=== PATIENT | female | born 1990 | race Caucasian/White ===

== ENCOUNTER 2023-09-11 18:33 | Inpatient (IN) | payer OTHER, SELFPAY ==
[2023-09-11 11:08] VITALS: BP 137/78
[2023-09-11 11:22] LABS: % Basophils 0.3 % (0-2); % Eosinophils 0.6 % (0-6); % Immature Granulocytes 0.2 % (0-0.5); % Lymphocytes 14.9 % (20.5-51.1); % Monocytes 7.5 % (1.7-9.3); % Neutrophils 76.5 % (42.2-75.2); Absolute Eosinophils 0.1 10^3/uL (0-0.7); Hemoglobin 13.5 g/dL (12.0-16.0); Mean Corp Hgb Conc. 35.5 g/dL (33.0-37.0); Mean Corpuscular Hgb 32.5 pg (27.0-31.0); Mean Corpuscular Volume 91.6 fL (81.0-99.0); Nucleated Red Blood Cells % 0 %; Platelet Count 199 10^3/uL (130-400); Red Blood Cell Count 4.15 10^6/uL (4.20-5.40); White Blood Cell Count 13.1 10^3/uL (4.8-10.8)
[2023-09-11 11:38] LABS: HCG, Serum Qualitative Screen Negative
[2023-09-11 11:51] LABS: ALT (SGPT) 13 U/L (0-35); AST (SGOT) 21 U/L (14-36); Albumin 4.5 g/dl (3.5-5.0); Alkaline Phosphatase 61 U/L (38-126); Blood Urea Nitrogen 12 mg/dl (7-17); Calcium 9.2 mg/dl (8.4-10.2); Carbon Dioxide 25 mmol/L (22-30); Chloride 103 mmol/L (98-107); Glucose 93 mg/dl (70-99); Potassium 4.1 mmol/L (3.5-5.1); Sodium 136 mmol/L (135-145); Total Bilirubin 0.9 mg/dl (0.2-1.3); Total Protein 7.2 g/dl (6.3-8.2); eGFR > 60.00
--- NOTE | 2023-09-11 13:04 | ED.GENMED ---
History of Present Illness
<Quiana Lobo PA-C - Last Filed: 09/11/23 17:41>
General
Chief Complaint: Anal/Rectal Problem
Source: patient
Time Seen by Provider: 09/11/23 12:47
History of Present Illness
History of Present Illness:
33yoF with a history of prior perianal abscess, SVT, seasonal allergies, and anxiety presenting for evaluation of rectal pain x 3 days. She reports increasing rectal discomfort and pain with sitting over the past few days. She has a history of a
perianal abscess in March 2022 that required surgery and her current symptoms feel similar. She reports nausea and body aches. Tmax 99.1 on arrival here. She has been taking ibuprofen which provides temporary relief. Last bowel movement was this
morning which was normal.
Phy Exam
<Quiana Lobo PA-C - Last Filed: 09/11/23 17:41>
Physical Exam
Physical Exam:
Abdomen soft, non-distended, non-tender. Small nonthrombosed external hemorrhoids noted. No palpable fluctuance or induration in gluteal region. +Pain during digital rectal exam although no obvious abscess palpated.
General Physical Exam
General Presentation: well appearing and no apparent distress
General age: appears stated age
General Skin: warm and dry
General Habitus: normal
General Mental: alert
General Hydration: appears well hydrated
Course
<Quiana Lobo PA-C - Last Filed: 09/11/23 17:41>
Orders/Labs/Results
Orders:
Orders
09/11/23 11:13
Test Result ONCE
09/11/23 11:16
CMP [Comprehensive Metabolic Panel] Urgent
Complete Blood Count/With Diff Urgent
HCG, Serum Qualitative Screen Urgent
09/11/23 13:06
CT Pelvis With Iv Contrast Urgent
Comment:
Reason For Exam: Rectal pain, hx of perianal abscess
0.9% Sodium Chloride 1000 ml [Nss] 1,000 ml IV BOLUS
Ketorolac [Toradol] 15 mg IV NOW STA
09/11/23 17:08
ColoRectal Surgery Consult Urgent
Consulting Provider: Donis Fisher
Was physician already notified: Yes
Reason for consult: Abscess
09/11/23 17:20
Ketorolac [Toradol] 15 mg IV NOW STA
09/11/23 17:29
Admit/Transfer Patient As Directed
Co-Sign Provider:
Level of Care: Inpatient admission
Assign to:: Medical/Surgical
Physician / Group: negrito
Diagnosis: perianal abscess
Reason for Hospitalization: perianal abscess
Expected length of stay greater than two midnights?: Yes
ELOS- Estimated Length of Stay in days: 2
I certify the patient meets the requirements for IP care: Yes
09/11/23 17:30
Code Status As Directed
Resuscitation Status: Full Code
09/11/23 18:00
LevoFLOXacin 750 MG/150 ML [Levaquin] 750 mg in 150 ml IV Q24H
MetroNIDAZOLE 500 MG/100 ML [Flagyl 500 mg] 100 ml IV Q8H
Abnormal Lab Results
09/11/23
11:16
WBC 13.1 H 10^3/uL
(4.8-10.8)
RBC 4.15 L 10^6/uL
(4.20-5.40)
MCH 32.5 H pg
(27.0-31.0)
Absolute Neuts (auto) 10.0 H 10^3/uL
(1.4-6.5)
Absolute Monos (auto) 1.0 H 10^3/uL
(0.1-0.6)
Neutrophils % 76.5 H %
(42.2-75.2)
Lymphocytes % 14.9 L %
(20.5-51.1)
09/11/23 11:16
09/11/23 11:16
Vital Signs
Initial and Last Documented VS:
Initial Vital Signs
Temp Pulse Resp BP Pulse Ox
99.1 F 92 20 137/78 97
09/11/23 11:08 09/11/23 11:08 09/11/23 11:08 09/11/23 11:08 09/11/23 11:08
Last Documented Vital Signs
Temp Pulse Resp BP Pulse Ox
99.1 F 92 20 100/68 100
09/11/23 11:08 09/11/23 11:08 09/11/23 11:08 09/11/23 17:09 09/11/23 17:10
Jessicalt;Arvin Han DO - Last Filed: 09/11/23 13:42>
Orders/Labs/Results
Orders:
Orders
09/11/23 11:13
Test Result ONCE
09/11/23 11:16
CMP [Comprehensive Metabolic Panel] Urgent
Complete Blood Count/With Diff Urgent
HCG, Serum Qualitative Screen Urgent
09/11/23 13:06
CT Pelvis With Iv Contrast Urgent
Comment:
Reason For Exam: Rectal pain, hx of perianal abscess
0.9% Sodium Chloride 1000 ml [Nss] 1,000 ml IV BOLUS
Ketorolac [Toradol] 15 mg IV NOW STA
09/11/23 17:08
ColoRectal Surgery Consult Urgent
Consulting Provider: Donis Fisher
Was physician already notified: Yes
Reason for consult: Abscess
09/11/23 17:20
Ketorolac [Toradol] 15 mg IV NOW STA
09/11/23 17:29
Admit/Transfer Patient As Directed
Co-Sign Provider:
Level of Care: Inpatient admission
Assign to:: Medical/Surgical
Physician / Group: negrito
Diagnosis: perianal abscess
Reason for Hospitalization: perianal abscess
Expected length of stay greater than two midnights?: Yes
ELOS- Estimated Length of Stay in days: 2
I certify the patient meets the requirements for IP care: Yes
09/11/23 17:30
Code Status As Directed
Resuscitation Status: Full Code
09/11/23 18:00
LevoFLOXacin 750 MG/150 ML [Levaquin] 750 mg in 150 ml IV Q24H
MetroNIDAZOLE 500 MG/100 ML [Flagyl 500 mg] 100 ml IV Q8H
Abnormal Lab Results
09/11/23
11:16
WBC 13.1 H 10^3/uL
(4.8-10.8)
RBC 4.15 L 10^6/uL
(4.20-5.40)
MCH 32.5 H pg
(27.0-31.0)
Absolute Neuts (auto) 10.0 H 10^3/uL
(1.4-6.5)
Absolute Monos (auto) 1.0 H 10^3/uL
(0.1-0.6)
Neutrophils % 76.5 H %
(42.2-75.2)
Lymphocytes % 14.9 L %
(20.5-51.1)
09/11/23 11:16
09/11/23 11:16
Vital Signs
Initial and Last Documented VS:
Initial Vital Signs
Temp Pulse Resp BP Pulse Ox
99.1 F 92 20 137/78 97
09/11/23 11:08 09/11/23 11:08 09/11/23 11:08 09/11/23 11:08 09/11/23 11:08
Last Documented Vital Signs
Temp Pulse Resp BP Pulse Ox
99.1 F 92 20 100/68 100
09/11/23 11:08 09/11/23 11:08 09/11/23 11:08 09/11/23 17:09 09/11/23 17:10
<Quiana Lobo PA-C - Last Filed: 09/11/23 17:41>
MDM/Problems Addressed
Differential Diagnosis Includes:
33yoF here with rectal pain x 3 days. Hx of perianal abscess and this feels similar. Also having low grade fevers and body aches. Temperature is 99.1 on arrival with otherwise stable vitals. She is well appearing in no acute distress. No obvious
fluctuance or induration on exam although pain is elicited with MATILDA. Differential diagnosis includes but is not limited to: perianal abscess, fistula, proctitis, hemorrhoids
Labs obtained in triage. White count elevated at 13. CT pelvis ordered. IV Toradol for pain.
<Quiana Lobo PA-C - Last Filed: 09/11/23 17:41>
*Critical Care Note
Total Time (30-74mins, 75-104mins- exclusive of procedures): Not Applicable
<Quiana Lobo PA-C - Last Filed: 09/11/23 17:41>
Update Note
Update Note:
CT abdomen shows fluid collection concerning for abscess vs. phlegmon. Colorectal surgery consulted and evaluated patient at bedside. Plan for OR tomorrow for I&D. She was admitted for further management.
ED Attending Note
<Quiana Lobo PA-C - Last Filed: 09/11/23 17:41>
-
Portions of this chart may have been created with voice recognition software.� Occasional wrong word or��sound alike� substitutions may have occurred due to the inherent limitations of voice recognition software.
<Arvin Han DO - Last Filed: 09/11/23 13:42>
ED Attending Note
Patient seen and examined by attending physician: Yes
I performed the substantive portion of visit, reviewed & personally made and approve the management plan that is documented in note by myself or JANA.: Yes
ED Attending Note:
I agree with Anushka's note
Pt c/o increasing rectal/perianal pain. Pt has hx of a perirectal abscess requiring OR I+D. Symptoms are very similar. + subjective fever
ABd: soft, non-tender.
No external fluctuance per Anushka or specific site of fluctuance on rectal exam. CT to confirm dx and identify location of abscess.
Discharge Plan
Departure
Patient Disposition: Admit
Date of Disposition: 09/11/23
Time of Disposition: 17:18
Presentation/result/management discussed w/ accepting MD/DO: Hospitalist
Discharge Problem:
Perianal abscess
Prescriptions:
No Action
omeprazole 20 mg Capsule,Delayed Release(Dr/Ec)
20 mg PO DAILY
Pulmicort Flexhaler 90 mcg/actuation Aerosol Powdr Breath Activated
2 inh INHALATION R BID
fluoxetine 40 mg capsule
40 mg PO DAILY
montelukast 10 mg tablet
10 mg PO HS
metoprolol succinate 25 mg tablet extended release 24 hr
25 mg PO HS
28-800 mg-mcg Tablet
1 tab PO DAILY
Referrals:
Earlene Walker CRNP [Family Provider] -
Interventions
Interventions:
*Risk Screen - Suicide Last Done: 09/11/23 13:34
*Neglect/Abuse Screening Last Done: 09/11/23 13:34
ED- Fall Risk Assessment Last Done: 09/11/23 13:34
*ED COVID-19 Vaccine History Last Done: 09/11/23 11:08
ED-Skin Assessment Last Done: 09/11/23 13:34
Discharge Date and Time
Print Language: BULGARIAN
[2023-09-11] MEDS: NSS 1000 IV (13:33)
[2023-09-11] MEDS: TORADOL 15 MG IV ×2 (13:33→18:16)
[2023-09-11 13:34] VITALS: BMI 23.2
[2023-09-11 17:09] VITALS: BP 100/68
--- NOTE | 2023-09-11 17:11 | CON.CRS ---
Consultation
-
Reason for Consultation: perirectal abscess
Medical History
-
Chief Complaint: anal pain
History of Present Illness:
3-year-old female with prior history of perirectal abscess drained surgically at [facility] in March 2022 with 3 days of anal pain and nausea. Denies fevers, chills, or changes in bowels. Denies drainage. Temparature 99.1 and
non-tachycardic and normotensive. WBC elevated at 13.1. Other labs unremarkable.
Past Medical History
Past Medical History: Asthma, Psychiatric (depression) and Other (perirectal abscess; SVT; scoliosis)
Past Surgical History: Other (I and D perirectal abscess Mar 2022 [facility]; wisdom tooth)
Social History
Tobacco: Non-Smoker
Alcohol: Occasional
Personal:
Living: With Family
Family History
Family History: Reviewed & Not Pertinent
Allergies / Home Medications
Allergy/AdvReac Type Severity Reaction Status Date / Time
cefaclor [From Ceclor] Allergy Anaphylaxis Verified 09/11/23 11:10
Penicillins Allergy Anaphylaxis Verified 09/11/23 11:10
Sulfa (Sulfonamide Allergy Anaphylaxis Verified 09/11/23 11:10
Antibiotics)
�Medication �Instructions �Recorded �Confirmed �Type
budesonide 90 mcg/actuation breath 2 inh inhalation BID 12/19/22 12/19/22 History
activated powder inhaler Lung/Breathing Issues
(Pulmicort Flexhaler)
fluoxetine 20 mg capsule (Prozac) 20 mg PO DAILY Mental 12/19/22 12/19/22 History
Health/Anxiety
omeprazole 20 mg capsule,delayed 20 mg PO DAILY GERD 12/19/22 12/19/22 History
release
[id number] 1 mg 1 tab PO 1XD Supplement 12/19/22 12/19/22 History
tablet
acetaminophen 325 mg tablet 650 mg (2 x 325 mg) PO Q4HPRN PRN 12/23/22 Rx
mild pain #0 tabs
ibuprofen 600 mg tablet 600 mg PO Q6HPRN PRN cramps #45 12/23/22 Rx
tabs
sennosides 8.6 mg-docusate sodium 1 tab PO DAILYPRN PRN constipation 12/23/22 Rx
50 mg tablet (Senna Plus) #0 tabs
Review of Systems
-
A 10 point review of systems was completed, and was negative except as per HPI.
Physical Exam
Vital Signs
Temp 99.1 F 09/11/23 11:08
Pulse 92 09/11/23 11:08
Resp Rate 20 09/11/23 11:08
Blood pressure 137/78 09/11/23 11:08
SaO2 97 09/11/23 11:08
09/10/23 09/11/23 09/12/23
06:59 06:59 06:59
Actual Weight 65.2 kg
Body Mass Index (BMI) 23.2
Lab Results / Allergies
09/11/23 11:16
09/11/23 11:16
WBC 13.1 10^3/uL (4.8-10.8) H 09/11/23 11:16
Hgb 13.5 g/dL (12.0-16.0) 09/11/23 11:16
Hct 38.0 % (37.0-47.0) 09/11/23 11:16
Plt Count 199 10^3/uL (130-400) 09/11/23 11:16
Abs Immat Gran (auto) 0.0 10^3/uL (0-0.05) 09/11/23 11:16
Neutrophils % 76.5 % (42.2-75.2) H 09/11/23 11:16
Allergy/AdvReac Type Severity Reaction Status Date / Time
cefaclor [From [facility]] Allergy Anaphylaxis Verified 09/11/23 11:10
Penicillins Allergy Anaphylaxis Verified 09/11/23 11:10
Sulfa (Sulfonamide Allergy Anaphylaxis Verified 09/11/23 11:10
Antibiotics)
Physical Exam
General: Well Developed
HEENT: Normocephalic
Respiratory: Clear
Cardiac: S1/S2
GI: Soft, Non Tender and Non Distended
Rectal: Other (no external erythema or fluctuance; tender posterior midline at verge/margin)
Skin: Warm and Dry
Neuro: Awake, Alert and Oriented
Psych: Calm
Data Reviewed
-
CT Scan: Image Personally Visualized and interpreted, Report Reviewed by me and Discussed with Patient
Labs: Labs Reviewed by me and Discussed with Patient
Assessment / Plan
-
33 yo F with history of perirectal abscess with apparent recurrence/new abscess. This is mainly posterior midline and is somewhat deep on the CT. It may be a horseshoe abscess. Regardless recommend admitting to the hospitalist service as she has
a history of SVT. Recommended IV antibiotics in the meantime. She should be n.p.o. after midnight and I did recommend a trip to the OR tomorrow morning for incision and drainage. Possible fistulotomy depending on findings. Operation discussed
including risk and benefits. Risk described included bleeding infection changes about control/fecal incontinence, anal stricture formation, fistula formation, potential need for further surgery, urinary retention, and anesthetic risk. The patient
understands and agrees to proceed.
--- NOTE | 2023-09-11 17:35 | HPS.HSE ---
Family Physician
-
Family Physician: ADELSO Menjivar
Chief Complaint
-
rectal discomfort
History of Present Illness
33-year-old female past medical history of perianal abscess in 2022 status post I&D, anal fissures status post sphincterotomy, intermittent constipation, SVT, anxiety, presenting for rectal pain for 3 days while sitting. She denies any anal
discharge. She denies any diarrhea. She had some nausea but denies vomiting. No abdominal pain. No chills.
Denies smoking or alcohol use.
She states that she has had history of anal fissures and had a sphincterotomy in her youth. She has been having on and off constipation particularly since she had a baby 9 months ago.
Medical History
Past Medical History
Past Medical History: Reports Other (perianal abscess in 2022 status post I&D, anal fissures status post sphincterotomy, intermittent constipation, SVT, anxiety,)
Past Surgical History: Reports Other (I&D for perianal abscess, anal sphincterotomy )
Social History
Tobacco: Non-smoker
Alcohol: None
Drug: None
Family History
Family History: Not pertinent
Allergies / Home Medications
Allergies reflects when Allergies were last updated in [facility].
Home Medications with original date entered in [facility]
Allergy/Medication List:
Allergies
Allergy/AdvReac Type Severity Reaction Status Date / Time
cefaclor [From [facility]] Allergy Anaphylaxis Verified 09/11/23 11:10
Penicillins Allergy Anaphylaxis Verified 09/11/23 11:10
Sulfa (Sulfonamide Allergy Anaphylaxis Verified 09/11/23 11:10
Antibiotics)
Home Medications
budesonide 90 mcg/actuation breath activated powder inhaler (Pulmicort Flexhaler) 2 inh inhalation R BID Lung/Breathing Issues 12/19/22
omeprazole 20 mg capsule,delayed release 20 mg PO DAILY GERD 12/19/22
fluoxetine 40 mg capsule 40 mg PO DAILY 09/11/23
metoprolol succinate 25 mg tablet,extended release 24 hr 25 mg PO HS 09/11/23
montelukast 10 mg tablet 10 mg PO HS 09/11/23
vit no.133-ferrous fumarate 28 mg-folic acid 800 mcg tablet () 1 tab PO DAILY 09/11/23
Review of Systems
-
History Source: Patient
A 12 point ROS was completed and negative except as noted: Yes
Constitutional: Reports No Symptoms
EENT: Reports No Symptoms
Respiratory: Reports No Symptoms
Cardiac: Reports No Symptoms
Abdomen/GI: Reports See HPI
: Reports No Symptoms
Musculoskeletal: Reports No Symptoms
Skin: Reports No Symptoms
Neurological: Reports No Symptoms
Endocrine: Reports No Symptoms
Hematologic/Lymphatic: Reports No Symptoms
Psych: Reports No Symptoms
Physical Exam
Vital Signs
Vital Signs
Temp Pulse Resp BP Pulse Ox
99.1 F 92 20 100/68 100
09/11/23 11:08 09/11/23 11:08 09/11/23 11:08 09/11/23 17:09 09/11/23 17:10
Physical Exam
General: Well Developed, Well Nourished and No Apparent Distress
HEENT: NormoCephalic, Moist mucous membranes and Atraumatic
Respiratory: Clear
Cardiac: S1/S2 and Regular Rhythm; No Murmur or Rub
GI: Soft, Non Tender, Non Distended and Normal Bowel Sounds; No Organomegaly
Rectal: Deferred by Provider
Musculoskeletal: No Clubbing, No Cyanosis and No Edema
Skin: No Rash
Neuro: Nonfocal/grossly intact
Laboratory Results
-
09/11/23 11:16
09/11/23 11:16
Laboratory Results
Total Bilirubin 0.9 mg/dl (0.2-1.3) 09/11/23 11:16
AST 21 U/L (14-36) 09/11/23 11:16
ALT 13 U/L (0-35) 09/11/23 11:16
Alkaline Phosphatase 61 U/L (38-126) 09/11/23 11:16
Data Reviewed
-
Lab Data: Labs Reviewed by me
Old Records: Reviewed
Impression/Plan
-
IMPRESSION:
PLAN:
# Recurrent perianal abscess
# Prior perianal abscess in 2022 s/p I&D
-Pelvic CT shows 3.3 x 1.5 cm posterior rectal/anal phlegmon versus abscess
-Levaquin/Flagyl
-IV fluids were given in ER
-N.p.o. past midnight for I&D tomorrow
-ketorolac for pain
History of anal fissures status post sphincterotomy
History of intermittent constipation
History of SVT
-Continue metoprolol
History of seasonal allergies
-Continue montelukast
Anxiety
-Continue fluoxetine
GERD
-Continue omeprazole
Full code
DVT prophylaxis�SCDs
NPO past midnight
[2023-09-11 18:00] VITALS: BP 108/64
[2023-09-11] MEDS: LEVAQUIN 150 IV (18:28)
[2023-09-11 19:00] VITALS: BP 96/64
[2023-09-11 19:38] VITALS: BP 104/59; BMI 23.7
--- NOTE | 2023-09-11 19:38 | PTCARENOTE ---
Pt arrived from ED via stretcher and ambulated to bed w/ family members at bedside. Pt is AAOx3, VSS, and complains of discomfort in her rectum when lying down flat. Pt is resting comfortably on her side w/ call vergara within reach.
[2023-09-11] MEDS: FLOVENT 44 MCG INHALER 2 PUFF INH (20:02)
[2023-09-11] MEDS: FLAGYL 500 MG 100 IV (20:51)
[2023-09-11] MEDS: ZOFRAN 4 MG IV (20:53)
[2023-09-11] MEDS: SINGULAIR 10 MG PO (21:02)
[2023-09-11 23:30] VITALS: BP 94/53
[2023-09-12] VITALS (10 sets, daily range): BP systolic 95–113; BP diastolic 53–64
[2023-09-12] MEDS: FLAGYL 500 MG 100 IV ×2 (01:54→10:34)
[2023-09-12] MEDS: TORADOL 10 MG IV (01:54)
[2023-09-12 07:46] LABS: % Basophils 0.2 % (0-2); % Eosinophils 0.2 % (0-6); % Immature Granulocytes 0.3 % (0-0.5); % Lymphocytes 9.5 % (20.5-51.1); % Monocytes 7.1 % (1.7-9.3); % Neutrophils 82.7 % (42.2-75.2); Absolute Lymphocytes 1.1 10^3/uL (1.2-3.4); Absolute Monocytes 0.8 10^3/uL (0.1-0.6); Absolute Neutrophils 9.8 10^3/uL (1.4-6.5); Hematocrit 35.7 % (37.0-47.0); Hemoglobin 12.3 g/dL (12.0-16.0); Mean Corp Hgb Conc. 34.5 g/dL (33.0-37.0); Mean Corpuscular Hgb 31.9 pg (27.0-31.0); Mean Corpuscular Volume 92.5 fL (81.0-99.0); Nucleated Red Blood Cells % 0 %; Platelet Count 171 10^3/uL (130-400); Red Blood Cell Count 3.86 10^6/uL (4.20-5.40); White Blood Cell Count 11.8 10^3/uL (4.8-10.8)
[2023-09-12] MEDS: FLOVENT 44 MCG INHALER INH (07:47)
[2023-09-12 08:09] LABS: ALT (SGPT) 10 U/L (0-35); AST (SGOT) 17 U/L (14-36); Albumin 3.6 g/dl (3.5-5.0); Alkaline Phosphatase 56 U/L (38-126); Blood Urea Nitrogen 10 mg/dl (7-17); Calcium 8.7 mg/dl (8.4-10.2); Carbon Dioxide 24 mmol/L (22-30); Chloride 104 mmol/L (98-107); Estimated Creatinine Clearance 113 ml/min; Glucose 94 mg/dl (70-99); Potassium 3.8 mmol/L (3.5-5.1); Sodium 135 mmol/L (135-145); Total Protein 6.1 g/dl (6.3-8.2); eGFR > 60.00
--- NOTE | 2023-09-12 09:10 | W.IMMPOSTOP ---
Addendum entered and electronically signed by Donis Fisher MD 09/12/23 11:38:
Updated patient's family in her room afterwards.
Ok for discharge from surgical perspective.
Original Note:
Surgical Immed Post Op Note
-
Primary Surgeon: Donis Fisher MD
Assisting Surgeon: Rachel Fowler PA-C
Pre-op Diagnosis: perianal abscess
Post-op Diagnosis: perianal abscess
Procedure Performed: I+D of perianal abscess
Anesthesia Type: general
Specimen / Cultures: pus
Estimated Blood Loss: 5ml
Complications: none
Operative Findings: perianal abscess in the posterior midline
[2023-09-12] MEDS: PROTONIX 40 MG PO (10:33)
[2023-09-12] MEDS: PROZAC 40 MG PO (10:33)
--- NOTE | 2023-09-12 11:15 | W.PN.HOSP.TC ---
Today's Communication/Plan
-
Monitor vital signs and see plan
Switch to p.o. antibiotics and discharge per colorectal
Patient will follow with colorectal surgery outpatient
Time of discharge 36 minutes
Assessment / Plan
Assessment / Plan
General: Well Developed, Well Nourished and No Apparent Distress
HEENT: NormoCephalic, Moist mucous membranes and Atraumatic
Respiratory: Clear
Cardiac: S1/S2 and Regular Rhythm; No Murmur or Rub
GI: Soft, Non Tender, Non Distended and Normal Bowel Sounds; No Organomegaly
Rectal: Deferred by Provider
Musculoskeletal: No Clubbing, No Cyanosis and No Edema
Skin: No Rash
Neuro: Nonfocal/grossly intact
Recurrent perianal abscess
# Prior perianal abscess in 2022 s/p I&D
-Pelvic CT shows 3.3 x 1.5 cm posterior rectal/anal phlegmon versus abscess
-Levaquin/Flagyl; dc on PO
s/p I and D 09/11. Per colorectal surgery patient will follow-up with them outpatient and can be discharged today. They will follow-up cultures outpatient.
pain control
History of anal fissures status post sphincterotomy
History of intermittent constipation
History of SVT
-Continue metoprolol
History of seasonal allergies
-Continue montelukast
Anxiety
-Continue fluoxetine
GERD
-Continue omeprazole
Full code
DVT prophylaxis�SCDs
Anticipated Discharge: Today
Subjective/Interval History
-
Date of Service: September 12, 2023
has mild pain
Objective Data
-
Labs:
Laboratory Results
09/12/23
07:31
WBC 11.8 H
Hgb 12.3
Hct 35.7 L
Plt Count 171
Sodium 135
Potassium 3.8
Chloride 104
Carbon Dioxide 24
BUN 10
Creatinine 0.6
Glucose 94
Calcium 8.7
Total Bilirubin 1.0
AST 17
ALT 10
Alkaline Phosphatase 56
Vital Signs:
Vital Signs
Temp Pulse Resp BP Pulse Ox
98.5 F 105 16 110/64 98
09/12/23 10:27 09/12/23 10:27 09/12/23 10:27 09/12/23 10:27 09/12/23 10:27
--- NOTE | 2023-09-12 11:52 | W.DS.TRANS ---
DC Summary - [employer]
-
Discharge Instructions:
Discharge Diagnosis/Procedures perianal abscess
Diet No restrictions
Activity As tolerated
Driving Restrictions No driving for 24 hours
Bathing Restrictions OK to Shower
Wound Care Sitz baths twice a day for 1 week. 10 minutes at
a time with warm water.
Instructions: How to Do a Sitz Bath
Stand-Alone Forms:
Changes to Home Medications: Yes
Discharge Medications:
DC Medications w/original date entered in [employer]
budesonide 90 mcg/actuation breath activated powder inhaler (Pulmicort Flexhaler) 2 inh inhalation R BID Lung/Breathing Issues 12/19/22
omeprazole 20 mg capsule,delayed release 20 mg PO DAILY GERD 12/19/22
fluoxetine 40 mg capsule 40 mg PO DAILY 09/11/23
metoprolol succinate 25 mg tablet,extended release 24 hr 25 mg PO HS 09/11/23
montelukast 10 mg tablet 10 mg PO HS 09/11/23
vit no.133-ferrous fumarate 28 mg-folic acid 800 mcg tablet () 1 tab PO DAILY 09/11/23
levofloxacin 750 mg tablet 750 mg PO DAILY #10 tabs 09/12/23
metronidazole 500 mg tablet 500 mg PO Q8H 10 days #30 tabs 09/12/23
Home Medication Changes
levofloxacin 750 mg tablet 750 mg PO DAILY #10 tabs 09/12/23
metronidazole 500 mg tablet 500 mg PO Q8H 10 days #30 tabs 09/12/23
Pending Results: Yes
Additional Pending Results:
OR cultures
--- NOTE | 2023-09-12 11:56 | PTCARENOTE ---
at 1020 pt back from OR. report received from [employer]. pt is AAO*3, pain 2 out of 10. pt is comfortable. stood up to use the bathroom. pt denies any discomfort. pt is on full liquid as per surgery. continue plan of care
--- NOTE | 2023-09-12 12:03 | W.DCSUMMARY ---
Discharge Summary
Discharge Data
Date of Admission: 09/11/23
Date of Discharge: 09/12/23
-
Pending Results: No
Hospital Course
33-year-old female with past medical history of anal fissure, intermittent constipation, SVT, she is allergies, anxiety, GERD came to the hospital with recurrent perianal abscess. CT scan was done which showed posterior rectal/anal abscess.
Patient was seen by colorectal and was taken to the OR for I&D on 10/01. Initially patient was on IV antibiotic which was later transitioned to oral antibiotics prior to discharge. After the I&D colorectal surgery deemed patient is stable to be
discharged home on oral antibiotics. Patient was instructed to follow-up with colorectal closely outpatient. Once patient was able to tolerate diet, she was then discharged home on p.o. antibiotics with instructions to follow-up with all her
physicians outpatient.
Discharge Plan
-
Patient Disposition: Home (Routine Discharge)
Discharge Diagnosis/Procedures: perianal abscess
Diet: No restrictions
Activity: As tolerated
Driving Restrictions: No driving for 24 hours
Bathing Restrictions: OK to Shower
Wound Care: Sitz baths twice a day for 1 week. 10 minutes at a time with warm water.
Instructions: How to Do a Sitz Bath
Referrals:
Donis Fisher MD [Active] - in one week
Earlene Walker CRNP [Family Provider] -
Additional Discharge Medication Instructions: Tylenol or Ibuprofen as needed for pain.
Prescriptions:
New
levofloxacin 750 mg tablet
750 mg PO DAILY Qty: 10 0RF
metronidazole 500 mg tablet
500 mg PO Q8H 10 Days Qty: 30 0RF
Continued
omeprazole 20 mg Capsule,Delayed Release(Dr/Ec)
20 mg PO DAILY
Pulmicort Flexhaler 90 mcg/actuation Aerosol Powdr Breath Activated
2 inh INHALATION R BID
fluoxetine 40 mg capsule
40 mg PO DAILY
montelukast 10 mg tablet
10 mg PO HS
metoprolol succinate 25 mg tablet extended release 24 hr
25 mg PO HS
28-800 mg-mcg Tablet
1 tab PO DAILY
Discharge Orders:
Discharge Patient (As Directed); Ordered 09/12/23
Ordered By: Rachel Fowler
Discharge Date and Time
Discharge Date/Time: 09/12/23 12:57
Print Language: YORUBA
== END 2023-09-12 12:57 | disposition home or self-care (01) | DRG 346 ==
LOC: 4 EAST ACU 18:33
PROVIDERS: Emergency Medicine; ADMITTING PHYSICIAN Hospitalist; ATTENDING PHYSICIAN Internal Medicine; CONSULT PHYSICIAN Surgery; EMERGENCY PHYSICIAN Emergency Medicine; FAMILY PHYSICIAN Nurse Practitioner Family
PROC: 0D9P4ZZ Drainage of Rectum, Percutaneous Endoscopic Approach (ICD-10-PCS; 2023-09-12)
PROC: 0D9P8ZZ Drainage of Rectum, Via Natural or Artificial Opening Endoscopic (ICD-10-PCS; 2023-09-12)
DX: K61.2 Anorectal abscess (principal); K62.89 Other specified diseases of anus and rectum; J45.909 Unspecified asthma, uncomplicated; F32.A Depression, unspecified; F41.9 Anxiety disorder, unspecified; K21.9 Gastro-esophageal reflux disease without esophagitis; Z88.1 Allergy status to other antibiotic agents; Z88.0 Allergy status to penicillin; Z88.2 Allergy status to sulfonamides; Z79.51 Long term (current) use of inhaled steroids
CPT/HCPCS: 72193; 80053; 84703; 85025; 87070; 87075; 87077; 87186; 87205; 94640; 96361; 96374; 99285; Q9967

== ENCOUNTER 2024-07-02 08:14 | Emergency (ER) | payer OTHER, SELFPAY ==
[2024-07-02] VITALS (8 sets, daily range): BP systolic 95–135; BP diastolic 58–81; BMI 23.5
--- NOTE | 2024-07-02 09:21 | ED.GENMED ---
History of Present Illness
General
Chief Complaint: Abdominal Symptoms
Source: patient
Exam Limitations: none
Time Seen by Provider: 07/02/24 09:20
History of Present Illness
History of Present Illness:
Patient complaining of 1 week of diarrhea frequently with dry heaves. No blood or mucus in the stool. No severe abdominal pain although some cramps with diarrhea. Frequent reflux-like symptoms. Denies pleuritic pain shortness of breath or other
complaints. Antibiotics 1 month ago. with mild diarrhea.
Past History
Past History
ED Past Medical History: Arrthythmia and GERD
ED Past Surgical History: and Other (Perianal abscess surgery)
Phy Exam
Physical Exam
Physical Exam:
GENERAL: Alert and oriented in no apparent distress
EYE: Orbits normal.
NECK: Supple
CARDIAC: Regular rate and rhythm without any obvious murmurs.
LUNGS: Clear breath sounds,normal
ABDOMEN: Soft, without focal tenderness or distention
NEUROLOGICAL: Alert and oriented , grossly non-focal
SKIN: Warm and dry, no rash or lesion, no discoloration, skin intact.
MUSCULOSKELETAL: No edema,no deformity.Good color
PSYCH: Normal and appropriate interaction.
Course
Orders/Labs/Results
Orders:
Orders
07/02/24 08:20
Electrocardiogram (*1) Urgent
Reason for Study: Abdominal Pain
Other Reason for Exam: reflux
07/02/24 08:21
EKG- Treatment ONCE
07/02/24 09:34
CT Abd/pel W Iv And Oral Contr Urgent
Comment:
Reason For Exam: abd pain. diarrhea
IV Insert/Care/Rem.- Treatment PRN
Stool Culture Urgent
[facility] Source: Feces/Stool
Specimen Description:
0.9% Sodium Chloride 1000 ml [Nss] 1,000 ml IV BOLUS
Iohexol [Omnipaque] See Protocol PO NOW STA
Test Result ONCE
07/02/24 09:36
STOOL [C difficile Antigen & Toxins] Urgent
[facility] Source: Feces/Stool
Specimen Description:
07/02/24 09:38
Ondansetron Injectable [Zofran] 4 mg IV NOW STA
Pantoprazole [Protonix IV] 40 mg IV NOW STA
07/02/24 09:51
Complete Blood Count/With Diff Urgent
Comprehensive Metabolic Panel Urgent
HCG, Serum Qualitative Screen Urgent
Lipase Urgent
07/02/24 12:48
Dexamethasone Pf [Decadron] 10 mg .ROUTE .STK-MED ONE
Dexamethasone Sod Phosphate [Decadron] 10 mg IV NOW STA
Dexamethasone Sod Phosphate [Decadron] 20 mg .ROUTE .STK-MED ONE
Diphenhydramine [Benadryl] 25 mg IV NOW STA
Diphenhydramine [Benadryl] 50 mg .ROUTE .STK-MED ONE
Famotidine [Pepcid] 20 mg .ROUTE .STK-MED ONE
Famotidine [Pepcid] 20 mg IV NOW STA
Abnormal Lab Results
07/02/24
09:51
MCH 31.6 H pg
(27.0-31.0)
Albumin 5.2 H g/dl
(3.5-5.0)
07/02/24 09:51
07/02/24 09:51
Vital Signs
Initial and Last Documented VS:
Initial Vital Signs
Temp Pulse Resp BP Pulse Ox
98.7 F 85 18 135/81 98
07/02/24 08:16 07/02/24 08:16 07/02/24 08:16 07/02/24 08:16 07/02/24 08:16
Last Documented Vital Signs
Temp Pulse Resp BP Pulse Ox
98.7 F 82 16 108/68 97
07/02/24 08:16 07/02/24 10:20 07/02/24 10:20 07/02/24 14:00 07/02/24 14:15
MDM/Problems Addressed
Differential Diagnosis Includes:
Patient describing colitis or enteritis. Workup in progress.
*Radiology
Radiology exam reviewed: radiology read reviewed (Possible mild colitis. Borderline enlarged spleen)
*Pulse Oximetry
Patient hypoxic: no
*EKG
Interpreted by ED Provider?: Yes
Interpretation: normal
Comparison EKG: no comparison EKG present
Heart Rate: 76
Rate: normal
Rhythm: sinus
[place]: normal axis
Interval: normal interval
QRS Pattern: normal QRS
Ischemia: no ischemia
*Critical Care Note
Total Time (30-74mins, 75-104mins- exclusive of procedures): Not Applicable
Data Reviewed
Review of Other/Old Records Reveals: Labs, Records and Testing
Update Note
Update Note:
1250... After CT. Patient has some itchy feeling in her throat and neck. Clinically stable. No drooling no stridor. Airway is clear. No obvious hives. However will cover for allergic reaction. H1 samantha H2 samantha and steroids. No
indication for epinephrine at this time
1435... Patient remains well. No diarrhea here. No distress. Has a prescription for nausea meds from her primary physician. Nonsurgical abdomen. No acute surgical findings on CT. Possible mild colitis. Copy of report given to patient. Will
follow-up splenomegaly. Allergic reaction issues remain mild and have resolved
ED Attending Note
-
Portions of this chart may have been created with voice recognition software.� Occasional wrong word or��sound alike� substitutions may have occurred due to the inherent limitations of voice recognition software.
Discharge Plan
Departure
Patient Disposition: Home (Routine Discharge)
Date of Disposition: 07/02/24
Time of Disposition: 14:38
Patient with high blood pressure during this ER visit?: Yes
Discharge Problem:
Recurrent nausea/diarrhea, Enteritis/mild colitis, Mild splenomegaly
Instructions: Diarrhea in teens and adults, Nausea and Vomiting, Adult (DC), BLOOD PRESSURE
Prescriptions:
No Action
omeprazole 20 mg Capsule,Delayed Release(Dr/Ec)
20 mg PO DAILY
Pulmicort Flexhaler 90 mcg/actuation Aerosol Powdr Breath Activated
2 inh INHALATION R BID
fluoxetine 40 mg capsule
40 mg PO DAILY
montelukast 10 mg tablet
10 mg PO HS
metoprolol succinate 25 mg tablet extended release 24 hr
25 mg PO HS
28-800 mg-mcg Tablet
1 tab PO DAILY
levofloxacin 750 mg tablet
750 mg PO DAILY Qty: 10 0RF
metronidazole 500 mg tablet
500 mg PO Q8H 10 Days Qty: 30 0RF
Referrals:
Kristi Brown MD [Family Provider] - Follow up in 2-3 days
Jaime Weir DO [Active] - Next open appointment
Activity Restrictions/Additional Instructions:
Follow-up your CAT scan findings with your primary physician and regulatory compliance director
Interventions
Interventions:
*Risk Screen - Suicide Last Done: 07/02/24 08:16
*General Assessment Last Done: 07/02/24 08:16
*Neglect/Abuse Screening Last Done: 07/02/24 08:16
*ED- Fall Risk Assessment Last Done: 07/02/24 10:20
*ED COVID-19 Vaccine History Last Done: 07/02/24 10:20
CJ-[id number] Assessment Last Done: 07/02/24 10:20
Discharge Date and Time
Print Language: B[place]UN[place]
[2024-07-02] MEDS: NSS 1000 IV (10:09)
[2024-07-02] MEDS: OMNIPAQUE 50 ML PO (10:13)
[2024-07-02] MEDS: PROTONIX IV 40 MG IV (10:13)
[2024-07-02] MEDS: ZOFRAN 4 MG IV (10:13)
[2024-07-02 10:22] LABS: % Basophils 0.7 % (0-2); % Immature Granulocytes 0.3 % (0-0.5); % Lymphocytes 33.4 % (20.5-51.1); % Monocytes 5.8 % (1.7-9.3); % Neutrophils 57.8 % (42.2-75.2); Absolute Eosinophils 0.1 10^3/uL (0-0.7); Absolute Monocytes 0.4 10^3/uL (0.1-0.6); Absolute Neutrophils 3.5 10^3/uL (1.4-6.5); Hematocrit 41.5 % (37.0-47.0); Hemoglobin 14.9 g/dL (12.0-16.0); Mean Corp Hgb Conc. 35.9 g/dL (33.0-37.0); Mean Corpuscular Hgb 31.6 pg (27.0-31.0); Mean Corpuscular Volume 87.9 fL (81.0-99.0); Mean Platelet Volume 9.7 fL (7.4-10.4); Nucleated Red Blood Cells % 0 %; Platelet Count 212 10^3/uL (130-400); Red Blood Cell Count 4.72 10^6/uL (4.20-5.40); Red Cell Dist. Width 12.2 % (11.5-14.5); White Blood Cell Count 6.1 10^3/uL (4.8-10.8)
[2024-07-02 10:35] LABS: ALT (SGPT) 17 U/L (0-35); AST (SGOT) 24 U/L (14-36); Albumin 5.2 g/dl (3.5-5.0); Alkaline Phosphatase 48 U/L (38-126); Blood Urea Nitrogen 10 mg/dl (7-17); Calcium 9.3 mg/dl (8.4-10.2); Carbon Dioxide 23 mmol/L (22-30); Chloride 107 mmol/L (98-107); Estimated Creatinine Clearance 96 ml/min; Glucose 88 mg/dl (70-99); Sodium 143 mmol/L (135-145); Total Protein 7.7 g/dl (6.3-8.2); eGFR > 60.00
[2024-07-02 10:36] LABS: HCG, Serum Qualitative Screen Negative
[2024-07-02 11:30] LABS: Lipase 172 U/L (23-300)
[2024-07-02] MEDS: BENADRYL 25 MG IV (12:50)
[2024-07-02] MEDS: PEPCID 20 MG IV (12:52)
[2024-07-02] MEDS: DECADRON 10 MG IV (12:53)
== END 2024-07-02 15:06 | disposition home or self-care (01) ==
LOC: EMR 08:14
PROVIDERS: EMERGENCY PHYSICIAN Emergency Medicine; FAMILY PHYSICIAN Family Medicine
DX: R11.0 Nausea (principal); K52.9 Noninfective gastroenteritis and colitis, unspecified; R16.1 Splenomegaly, not elsewhere classified; K21.9 Gastro-esophageal reflux disease without esophagitis
CPT/HCPCS: 99284; 96374; 96375; 74177; 80053; 83690; 84703; 85025; 93005; Q9967